=== PATIENT | male | born 1990 | race Two or more races ===

== ENCOUNTER 2019-04-28 16:30 | Emergency (ER) | payer OTHER ==
[2019-04-28] MEDS ORDERED: HYDROMORPHONE 1 MG/ML SYRINGE IV PRN (17:06)
[2019-04-28] MEDS ORDERED: ONDANSETRON HCL 4 MG/2 ML SOL IV ONE (17:06)
[2019-04-28 17:07] VITALS: TEMP 98
[2019-04-28] MEDS ORDERED: KETOROLAC TROMETHAMINE 30 MG/ML SOL IV ONE (17:07)
[2019-04-28] MEDS ORDERED: CYCLOBENZAPRINE 10 MG TAB PO ONE (17:07)
[2019-04-28 17:13] LABS: BASOPHILS % (AUTO) 1 % (0-3); EOSINOPHILS % (AUTO) 0 % (0-9); HEMATOCRIT 42 % (39-53); HEMOGLOBIN 13.6 gm/dl (13.5-17.7); LYMPHOCYTES % (AUTO) 29.8 % (10-50); MEAN CORPUSCULAR HEMOGLOBIN 29.7 pg (27.0-32.0); MEAN CORPUSCULAR HGB CONC 32.4 gm/dl (32.0-36.0); MEAN CORPUSCULAR VOLUME 92 fL (80-100); MONOCYTES % (AUTO) 5.8 % (0-12); NEUTROPHILS % (AUTO) 63.5 % (37-80)
[2019-04-28] MEDS: SODIUM CHLORIDE 0.9% 1000ML 1,000 ML IV SCH ×2 (17:15→19:02)
[2019-04-28] MEDS ORDERED: HYDROMORPHONE 1 MG/ML SYRINGE IV ONE ×2 (17:19→18:44)
[2019-04-28] MEDS ORDERED: HYDROMORPHONE 1 MG/ML SYRINGE ONE ×2 (17:19→18:59)
[2019-04-28] MEDS ORDERED: KETOROLAC TROMETHAMINE 30 MG/ML SOL ONE (17:19)
[2019-04-28] MEDS ORDERED: ONDANSETRON HCL 4 MG/2 ML SOL ONE (17:20)
[2019-04-28] MEDS ORDERED: CYCLOBENZAPRINE 10 MG TAB ONE (17:20)
[2019-04-28 17:25] LABS: ALBUMIN 4.2 gm/dl (3.4-5.0); BILIRUBIN,TOTAL 0.4 mg/dl (0.2-1.0); CALCIUM 8.7 mg/dl (8.5-10.1); CARBON DIOXIDE 24.9 mEq/L (21-32); CREATININE 1.34 mg/dl (0.80-1.30); TOTAL PROTEIN 7.8 gm/dl (6.4-8.2)
[2019-04-28 17:43] LABS: APPEARANCE,URINE Clear; BILIRUBIN,URINE NEGATIVE (NEGATIVE); COLOR,URINE Yellow; GLUCOSE, URINE (UA) NEGATIVE (NEGATIVE); KETONES,URINE NEGATIVE (NEGATIVE); LEUKOCYTE ESTERASE ,URINE NEGATIVE (NEGATIVE); NITRATE,URINE NEGATIVE (NEGATIVE); OCCULT BLOOD,URINE NEGATIVE (NEG-TRACE); UROBILINOGEN,URINE 0.2 (0.2-1.0 EU)
[2019-04-28 17:54] LABS: BACTERIA TRACE (< 1+); CRYSTALS NEGATIVE (0-3 AVE/HPF); EPITHELIAL CELLS 0-1 (SQUAMOUS); RBC,URINE NEGATIVE (0-3AV/HPF); WBC,URINE NEGATIVE (0-5AV/HPF)
[2019-04-28 20:44] VITALS: BP 119/95; PULSE 68; RESP 20; O2SAT 99
== END 2019-04-28 20:35 | disposition home or self-care (01) | DRG 552 ==
LOC: ED 16:30
DX: M54.9 Dorsalgia, unspecified (principal); R10.13 Epigastric pain; R11.2 Nausea with vomiting, unspecified; K76.0 Fatty (change of) liver, not elsewhere classified; Z87.440 Personal history of urinary (tract) infections
CPT/HCPCS: 71046; 80053; 81001; 85025; 96365; 96366; 96374; 96375; 99283; 99285; J1885; J2405; A9270-GY; J1170